=== PATIENT | female | born 1995 | race Caucasian/White ===

== ENCOUNTER 2017-01-12 19:15 | Emergency (ER) | payer OTHER ==
[~2017-01-12] VITALS: Ht 165.1 cm; Wt 59.0 kg
[2017-01-12 19:21] VITALS: BP 148/87; PULSE 104; RESP 24; O2SAT 99
--- NOTE | 2017-01-12 20:25 | ED.REPORT ---
HPI-General Illness Date of Service Jan 12, 2017 ED Provider: Malcolm Flowres DO Carol Tang is an otherwise healthy 21 year old woman who presents with a 2 day history of severe productive cough who woke this morning with severe pain with inspiration under her Right breast. She states that she is only able to take shallow breaths because of the pain which she rates as an 8/10. She states that her cough has greatly improved but that her pain is worsening. She denies hemoptysis, palpitations, leg swelling, or family history of coagulopathy. Patient is an occasional cigarette smoker and has a Nexplanon control implant. Nursing Notes Stated Complaint: PAINFUL BREATHING Chief Complaint: Respiratory Distress Allergies: Coded Allergies: No Known Allergies (Unverified , 01/12/17) Scheduled Amoxicillin (Amoxicillin) 500 Mg Tablet 500 MG PO TID Azithromycin (Azithromycin) 500 Mg Tablet 500 MG PO DAILY General Time Seen by MD: 20:10 Chief Complaint Breathing problem Hx Obtained From: Patient Arrived By: Walk-in Sudden in Onset?: Yes Onset Occurred: 5 - 8 hours ago Symptom Duration: Since onset Recent Healthcare: No recent doctor visit Similar Sx Previous: No Review of Systems Full Review of Systems Respiratory: Reports: Pleuritic pain, Prod cough, green, Shortness of breath Complete sys rev & neg: except as marked. Physical Exam Gen: A/O x3 pleasant cooperative young woman in moderate acute distress secondary to dyspnea and pain, Tearful Neck: Supple, non tender, no thyromegaly, Full ROM HEENT: PERRL, EOMI, mucous membranes moist, no conjunctival pallor, no scleral icterus CV: Mild Tachycardia with approx rate 105 regular rhythm, no murmurs rubs or gallops Resp: Shallow breathing, egophony and rhonchi in R middle lobe Abdomen: Soft, non tender, no organomegaly Extr: No cyanosis clubbing or edema Neuro: CN 2-12 grossly intact, no focal neurologic deficit. Vital Signs Vital Signs Date Time Temp Pulse Resp B/P Pulse Ox O2 Delivery O2 Flow Rate FiO2 01/12/17 19:21 36.3 104 24 148/87 99 Room Air Initial VS: Reviewed, Vital signs abnormal (Mild tachycardia and HTN) Interpretation & Diagnostics Lab Results Interpretation Result Diagram: 01/12/17205701/12/172057 Test 01/12/17 20:58 01/12/17 21:19 White Blood Count 10.4th/mm3 (3.8-10.1) Red Blood Count 4.60mil/mm3 (3.90-5.20) Hemoglobin 14.1g/dL (12.0-15.6) Hematocrit 41.0% (35.0-46.0) Mean Corpuscular Volume 89.1fL (81-100) Mean Corpuscular Hemoglobin 30.7pg (27.0-35.0) Mean Corpuscular Hemoglobin Concent 34.4% (32.0-37.0) Red Cell Distribution Width 11.1% (12.3-15.4) Platelet Count 190bil/L (150-400) Neutrophils (%) (Auto) 62.3% (40-74) Lymphocytes (%) (Auto) 22.4% (14-46) Monocytes (%) (Auto) 10.3% (4-12) Eosinophils (%) (Auto) 4.7% (0-5) Basophils (%) (Auto) 0.2% (0-3) D-Dimer < 0.50mg/L FEU (<0.50) Sodium Level 138mEq/L (134-144) Potassium Level 3.8mEq/L (3.5-5.2) Chloride Level 99mEq/L (97-108) Carbon Dioxide Level 22mmol/L (18-29) Blood Urea Nitrogen 9mg/dL (6-20) Creatinine 0.71mg/dL (0.57-1.00) Estimat Glomerular Filtration Rate 152mL/min (>59) Glucose Level 101mg/dL (60-99) Calcium Level 9.7mg/dL (8.5-10.1) Total Bilirubin 0.3mg/dL (0.0-1.2) Aspartate Amino Transf (AST/SGOT) 14U/L (0-50) Alanine Aminotransferase (ALT/SGPT) 8U/L (0-32) Alkaline Phosphatase 69U/L (25-150) Total Protein 8.4g/dL (6.4-8.4) Albumin 4.5g/dL (3.4-5.0) Hold Urine Received (Received) Lab Results Interpretation: Mild Luekocytosis X-Ray Chest Interpretation Interpretation / Wet Read by: Interpret - Radiologist NL X-Ray Chest Findings: Normal lung markings, Normal heart size, Normal mediastinum, Normal great vessels, No fracture, Soft tissues normal, No acute disease, No sail sign, NL cardiothymic shadow Infiltrate / Pneumothorax: Infiltrate R middle lung Procedures Procedure Notes: Osteopathic manipulation of 7th rib R, balanced ligamentous tension, proper alignment re-established Re-Eval/Medical Decision Med Decision/Clinical Course This is a patient with a 1 day history of sharp pain under the R breast with inhalation, PERC score 2 for tachycardia and exogenous estrogen(Nexplanon), Wells score 1.5 for tachycardia, D-Dimer ordered and was negative. CXR reveals R middle lobe pneumonia so Ceftriaxone and Azithromycin given in the ER. Given that she is a young otherwise healthy non toxic appearing patient we elected to continue her antibiotic therapy PO as an outpatient, Amoxicillin and Azithromycin prescribed. Patient was given follow up instructions and return precautions prior to DC. Counseled Regarding: Diagnosis, Lab results, Need for follow-up, When/why to return to ED Discharge & Departure Shift Change Sign-Out Patient Care Transferred: No Discussed Complaint(s): Yes Laboratory Evaluation: Lab evaluation discussed Imaging Studies: Imaging discussed Response to Therapy: Improved Primary Impression: CAP (community acquired pneumonia) Disposition: Home Discharge Condition All VS Reviewed: Yes Condition: Stable Patient Instructions: Bacterial Pneumonia (ED) Additional Instructions: You appear to be suffering from a bacterial pneumonia, we have given you a dose of antibiotics here in the ER, and a prescription for further antibiotics to take at home. Be sure to take the entire prescription as directed until the bottles are empty. If your symptoms worsen or fail to improve by the end of the week, please visit your primary care doctor, urgent care, or return to the ER. Referrals: NOPCP (PCP) Attending Statement I personally took a history performed a physical examination. I concur with the assessment and plan above. Healthy 21-year-old female right middle lobe pneumonia. Pulmonary embolism highly unlikely. D-dimer negative. She will be treated with a beta lactam and a macrolide. Recommend close outpatient follow- up. Her illnesses commensurate with outpatient treatment. Mao Rivera DO Jan 12, 2017 20:21 Malcolm Flowers DO Jan 12, 2017 23:49
--- NOTE | 2017-01-12 20:36 | DRSVH ---
PROCEDURE: X-RAY CHEST, TWO VIEWS ([id number]) INDICATIONS: Pain TECHNIQUE: 2 views of the chest were acquired. COMPARISON: None. FINDINGS: Surgical changes and devices: None. Lungs and pleura: Focal pulmonary radiopacities are present within the right middle lobe. The lungs a re otherwise clear. No pleural effusion or pneumothorax. Mediastinum: Mediastinal contours are normal. Heart size is normal. Bones and chest wall: No suspicious bony abnormalities. Soft tissues appear unremarkable. IMPRESSION: Findings suspicious for early right middle lobe pneumonia. Short interval followup is rec ommended with resolution of the patient's symptoms to ensure there is no underlying pulmonary patholo gy. Dictated by: Triny Hawkins M.D. on 01/12/2017 at 20:35 Approved by: Triny Hawkins M.D. on 01/12/2017 at 20:35
[2017-01-12] MEDS ORDERED: Azithromycin Inj 500 MG in Dextrose 5% w/Vial Mate 250 ML IV ONE (20:55)
[2017-01-12] MEDS ORDERED: cefTRIAXone Inj 1,000 MG in Dextrose 5% Minibag Plus 50 ML IV ONE (20:55)
[2017-01-12] MEDS ORDERED: 0.9% Sodium Chloride 1,000 ML IV ONE (20:55)
[2017-01-12 21:16] LABS: BASOPHILS % (AUTO) 0.2 % (0-3); EOSINOPHILS % (AUTO) 4.7 % (0-5); MONOCYTES % (AUTO) 10.3 % (4-12); Mean Corpuscular Hemoglobin 30.7 pg (27.0-35.0); Mean Corpuscular Volume 89.1 fL (81-100); NEUTROPHILS % (AUTO) 62.3 % (40-74); Platelet Count 190 bil/L (150-400)
[2017-01-12] MEDS ORDERED: AMOX500T2 PO (22:18)
[2017-01-12] MEDS ORDERED: AZIT500T5 PO (22:18)
[2017-01-12] MEDS ORDERED: Ondansetron 2 mg/mL 2 mL Inj ONE (22:31)
== END 2017-01-12 23:34 | disposition home or self-care (01) ==
LOC: SED 19:15
DX: J18.9 Pneumonia, unspecified organism (principal)
CPT/HCPCS: 36415; 71020; 80053; 85025; 85378; 96361; 96365; 96367; 96372; 96375; 99285; J0456; J0696; J1885; J2405; J7030